=== PATIENT | male | born 1950 | race Caucasian/White ===

== ENCOUNTER 2017-09-30 10:58 | Emergency (ER) | payer MEDICARE, BC ==
[~2017-09-30] VITALS: Ht 175.3 cm; Wt 95.0 kg
[~2017-09-30 10:58] MED LIST: ASPI81TA23 PO; CYCL10TA PO; METO25TA3 PO; NITR0.4S SL; OMEP10CA PO; PRIN10TA PO; ROSU10 PO
[2017-09-30 11:07] VITALS: BP 196/104; PULSE 72; RESP 16; TEMP 98.5; O2SAT 98
[2017-09-30] MEDS ORDERED: ONDANSETRON HCL 4 MG/2 ML VIAL IVP ONE (11:30)
[2017-09-30] MEDS ORDERED: HYDROmorphone HCL PF 1 MG/ML VIAL IVS ONE (11:30)
--- NOTE | 2017-09-30 11:33 | PD ---
HPI Chief Complaint: Pain: Acute or Chronic Time Seen by Provider: 11:15 Travel History International Travel<30 days: No Contact w/Intl Traveler<30days: No Traveled to known affect area: No History of Present Illness HPI This patient complains of severe pain in the left chest and left shoulder and left scapula. It's hard for him to localize. It sometimes radiates down his left arm. Pain is severe. Duration 2 weeks. No distinct injury. It's worse with certain movements of the left arm. He denies motor weakness or sensory loss or paresthesia. He was admitted for this a week ago and had heart catheterization which did not reveal a cardiac cause. No alleviating factors. Symptoms are nonexertional. Symptoms are worsened when he abducts his left arm to its fullest extension. PFSH Past Medical History Heart Rhythm Problems: Yes (wpw- ablation 2012) Cancer: No Cardiac Catheterization: Yes Cardiovascular Problems: Yes (HTN; hypercholesterolemia, ANTON, beckwith parkinsons white) High Cholesterol: Yes Chest Pain: Yes Diabetes: No Patient Takes Glucophage: No Diminished Hearing: No Endocrine: No Gastrointestinal Disorders: No GERD: Yes Genitourinary: No Hypertension: Yes Implanted Vascular Access Dvce: No Musculoskeletal: Yes Neurologic: No Psychiatric: No Reproductive: No Respiratory: Yes Sleep Apnea: Yes (cpap at night ) Tetanus Vaccination: Unknown Past Surgical History Abdominal Surgery: No AICD: No Arteriovenous Shunt: No Cardiac Surgery: Yes (cardiac ablation) Ear Surgery: No Endocrine Surgery: No Eye Surgery: No Genitourinary Surgery: No Gynecologic Surgery: No Insulin Pump: No Joint Replacement: No Neurologic Surgery: No Oral Surgery: No Pacemaker: No Thoracic Surgery: Yes (protruding disc 2008) Other Surgery: Yes (SINUS SURGERY) Social History Alcohol Use: Yes (4 BEERS A WEEK) Tobacco Use: No (Quit 3 years ago) Substance Use: No Allergies-Medications (Allergen,Severity, Reaction): Coded Allergies: No Known Allergies (Verified Allergy, Unknown, 09/30/17) Reported Meds & Prescriptions Reported Meds & Active Scripts Active Medrol Dosepak (Methylprednisolone) 4 Mg Dspk 4 Mg PO DIRECTED Per Pharmacist direction Percocet (Oxycodone-Acetaminophen) 5-325 mg Tab 1 Tab PO Q6H PRN Aspirin EC (Aspirin) 81 Mg Tabdr 81 Mg PO DAILY Nitrostat SL (Nitroglycerin) 0.4 Mg Subl 0.4 Mg SL Q5M PRN Flexeril (Cyclobenzaprine HCl) 10 Mg Tab 5 Mg PO Q8H PRN Reported Omeprazole 10 Mg Cap 20 Mg PO DAILY Metoprolol Tartrate 25 Mg Tab 25 Mg PO BID Prinivil (Lisinopril) 10 Mg Tab 10 Mg PO DAILY Crestor (Rosuvastatin Calcium) 10 Mg Tab 10 Mg PO DAILY Review of Systems General / Constitutional: No: Fever Eyes: No: Visual changes HENT: No: Headaches Cardiovascular: Positive: Chest Pain or Discomfort Respiratory: No: Shortness of Breath Gastrointestinal: No: Abdominal Pain Genitourinary: No: Dysuria Musculoskeletal: Positive: Myalgias, Arthralgias, Pain Skin: No Rash Neurologic: No: Weakness Psychiatric: No: Depression Endocrine: No: Polydipsia Hematologic/Lymphatic: No: Easy Bruising Physical Exam Narrative GENERAL: Well-nourished, well-developed patient in severe pain . SKIN: Focused skin assessment reveals no rash and nodules. Skin is Warm and dry. HEAD: Atraumatic. Normocephalic. EYES: Pupils equal and round. No scleral icterus. No injection or drainage. ENT: No nasal bleeding or discharge. Mucous membranes pink and moist. NECK: Trachea midline. No JVD. CARDIOVASCULAR: Regular rate and rhythm. No murmur appreciated. RESPIRATORY: No accessory muscle use. Clear to auscultation. Breath sounds equal bilaterally. GASTROINTESTINAL: Abdomen soft, non-tender, nondistended. Hepatic and splenic margins not palpable. MUSCULOSKELETAL: No obvious deformities. No clubbing. No cyanosis. No edema. No midline tenderness of the back. Good range of motion of the shoulder but his pain is reproduced with abducting his left arm to 180 . NEUROLOGICAL: Awake and alert. No obvious cranial nerve deficits. Motor grossly within normal limits. Normal speech. Sensation subjectively intact PSYCHIATRIC: Appropriate mood and affect; insight and judgment normal. Data Data Last Documented VS Vital Signs Date Time Temp Pulse Resp B/P (MAP) Pulse Ox O2 Delivery O2 Flow Rate FiO2 09/30/17 14:50 68 16 181/92 (121) 95 Room Air 09/30/17 11:07 98.5 Orders Orders Electrocardiogram (09/30/17 ) Iv Access Insert/Monitor (09/30/17 11:27) Complete Blood Count With Diff (09/30/17 11:27) Basic Metabolic Panel (Bmp) (09/30/17 11:27) Prothrombin Time / Inr (Pt) (09/30/17 11:27) Act Partial Throm Time (Ptt) (09/30/17 11:27) Ondansetron Inj (Zofran Inj) (09/30/17 11:30) Mri C Spine W/O Contrast (09/30/17 ) Electrocardiogram (09/30/17 ) Mri T Spine W/O Contrast (09/30/17 ) Hydromorphone Pf Inj (Dilaudid Pf Inj) (09/30/17 12:00) Ct Thorax/ Chest Wo Iv Contras (09/30/17 ) Radiology Film Requests (09/30/17 ) Labs Laboratory Tests Test 09/30/17 11:30 White Blood Count 4.3 TH/MM3 Red Blood Count 4.01 MIL/MM3 Hemoglobin 12.1 GM/DL Hematocrit 36.9 % Mean Corpuscular Volume 92.0 FL Mean Corpuscular Hemoglobin 30.3 PG Mean Corpuscular Hemoglobin Concent 32.9 % Red Cell Distribution Width 12.8 % Platelet Count 208 TH/MM3 Mean Platelet Volume 9.5 FL Neutrophils (%) (Auto) 48.9 % Lymphocytes (%) (Auto) 40.4 % Monocytes (%) (Auto) 7.4 % Eosinophils (%) (Auto) 1.9 % Basophils (%) (Auto) 1.4 % Neutrophils # (Auto) 2.1 TH/MM3 Lymphocytes # (Auto) 1.7 TH/MM3 Monocytes # (Auto) 0.3 TH/MM3 Eosinophils # (Auto) 0.1 TH/MM3 Basophils # (Auto) 0.1 TH/MM3 CBC Comment DIFF FINAL Differential Comment Prothrombin Time 11.5 SEC Prothromb Time International Ratio 1.0 RATIO Activated Partial Thromboplast Time 27.2 SEC Blood Urea Nitrogen 18 MG/DL Creatinine 1.20 MG/DL Random Glucose 92 MG/DL Calcium Level 8.6 MG/DL Sodium Level 141 MEQ/L Potassium Level 4.3 MEQ/L Chloride Level 108 MEQ/L Carbon Dioxide Level 23.0 MEQ/L Anion Gap 10 MEQ/L Estimat Glomerular Filtration Rate 61 ML/MIN MDM Medical Decision Making Medical Screen Exam Complete: Yes Emergency Medical Condition: Yes Medical Record Reviewed: Yes Differential Diagnosis Disc herniation of cervical spine, discoloration of the thoracic spine, rotator cuff tear Narrative Course I have reviewed the patient's electronic medical record. Reviewed his admission history and physical heart catheterization from 1 week ago IV placed Gave him injection of Dilaudid and Zofran for symptom relief CBC is normal Metabolic profile is normal Coagulation studies are normal I reviewed his EKG which shows sinus rhythm and no ST elevation or ectopy Cervical spine MRI shows several areas of broad-based disc bulging which abut the cervical cord Thoracic spine MRI is normal CT the chest is normal Case reviewed in detail with neurosurgeon Dr. Daniels reviewed the MRI. He recommends some pain management and Medrol Dosepak and outpatient follow-up. This patient is going back to his physician on Wednesday and he has an appointment. He is going back in [place] on Wednesday Diagnosis Primary Impression: Cervical disc herniation Additional Impression: Interscapular pain Additional Instructions: The patient was advised to follow up with their physician and return if they worsen. The patient was warned about potential sedation for the medications they will receive on prescription. Med/Other Pt SpecificInfo: Prescription(s) given Scripts Methylprednisolone Dosepak (Medrol Dosepak) 4 Mg Dspk 4 MG PO DIRECTED, #1 DSPK 0 Refills Per Pharmacist direction Prov: Russel Rodriguez MD 09/30/17 Oxycodone-Acetaminophen (Percocet) 5-325 mg Tab 1 TAB PO Q6H Y for PAIN, #25 TAB 0 Refills Prov: Russel Rodriguez MD 09/30/17 Disposition: 01 DISCHARGE HOME Condition: Stable Russel Rodriguez MD Sep 30, 2017 11:33
[2017-09-30 11:44] LABS: AUTOMATED NEUTROPHIL # 2.1 TH/MM3 (1.8-7.7); BASOPHIL # 0.1 TH/MM3 (0-0.2); BASOPHIL % 1.4 % (0.0-2.0); EOSINOPHIL # 0.1 TH/MM3 (0-0.4); EOSINOPHIL % 1.9 % (0.0-4.0); HEMATOCRIT 36.9 % (39.0-51.0); HEMO FLAGS DIFF FINAL; LYMPH % 40.4 % (9.0-44.0); LYMPHOCYTE # 1.7 TH/MM3 (1.0-4.8); MEAN CORPUSCULAR HEMOGLOBIN 30.3 PG (27.0-34.0); MEAN CORPUSCULAR HGB CONC 32.9 % (32.0-36.0); MONO % 7.4 % (0.0-8.0); NEUT % 48.9 % (16.0-70.0); PLATELET COUNT 208 TH/MM3 (150-450); RED BLOOD COUNT 4.01 MIL/MM3 (4.50-5.90); RED CELL DISTRIBUTION WIDTH 12.8 % (11.6-17.2); WHITE BLOOD COUNT 4.3 TH/MM3 (4.0-11.0)
[2017-09-30] MEDS ORDERED: HYDROmorphone HCL PF 2 MG/ML VIAL IV ONE (12:00)
[2017-09-30 12:01] LABS: APTT (PATIENT) 27.2 SEC (24.3-30.1); POTASSIUM 4.3 MEQ/L (3.5-5.1); PROTHROMBIN TIME - PATIENT 11.5 SEC (9.8-11.6)
--- NOTE | 2017-09-30 12:20 | RADRPT ---
EXAM DATE/TIME: 09/30/2017 12:06 [facility] COMPARISON: No previous studies available for comparison. INDICATIONS : Left chest and shoulder pain. RADIATION DOSE: 15.45 CTDIvol (mGy) MEDICAL HISTORY : Hypertension. Parkinsons. SURGICAL HISTORY : None. ENCOUNTER: Initial ACUITY: 2 weeks PAIN SCALE: 7/10 LOCATION: Left chest TECHNIQUE: Volumetric scanning of the chest was performed. Using automated exposure control and adjustment of t he mA and/or kV according to patient size, radiation dose was kept as low as reasonably achievable to obtain optimal diagnostic quality images. DICOM format image data is available electronically for r eview and comparison. Follow-up recommendations for detected pulmonary nodules are based at a minimum on nodule size and pa tient risk factors according to Fleischner Society Guidelines. FINDINGS: LUNGS: There is no consolidation or pneumothorax. No concerning pulmonary nodule is visualized. PLEURAE: There is no pleural thickening or pleural effusion. MEDIASTINUM: The heart and great vessels demonstrate no acute abnormality. There is no mediastinal or hilar lymph adenopathy. AXILLAE: Within normal limits. No lymphadenopathy. MUSCULOSKELETAL: Within normal limits for patient age. MISCELLANEOUS: The visualized upper abdominal organs demonstrate no acute abnormality. CONCLUSION: Normal examination for a patient of this age. Santana Castillo MD on September 30, 2017 at 12:17 Board Certified Radiologist. This report was verified electronically.
[2017-09-30 12:29] VITALS: BP 149/79; PULSE 59; RESP 16; O2SAT 97
--- NOTE | 2017-09-30 14:04 | RADRPT ---
EXAM DATE/TIME: 09/30/2017 13:26 [facility] COMPARISON: No previous studies available for comparison. INDICATIONS : HNP. MEDICAL HISTORY : Hypertension. SURGICAL HISTORY : Right elbow, deviated septum, sinus surgery and lumbar surgery. ENCOUNTER: Initial ACUITY: 1 day PAIN SCORE: 4/10 LOCATION: Back. TECHNIQUE: Multiplanar multisequence MRI of the thoracic spine was performed. FINDINGS: VERTEBRA: Normal vertebral body height. Homogeneous marrow signal. ALIGNMENT: Normal. CORD: Normal position and configuration. T1-T2: Normal. T2-T3: The thecal sac has a normal diameter. No evidence of disc bulge or protrusion. T3-T4: The thecal sac has a normal diameter. No evidence of disc bulge or protrusion. T4-T5: The thecal sac has a normal diameter. No evidence of disc bulge or protrusion. T5-T6: The thecal sac has a normal diameter. No evidence of disc bulge or protrusion. T6-T7: The thecal sac has a normal diameter. No evidence of disc bulge or protrusion. T7-T8: The thecal sac has a normal diameter. No evidence of disc bulge or protrusion. T8-T9: There is a mild broad-based disc bulge. No abutment of the cord or central canal stenosis. T9-T10: The thecal sac has a normal diameter. No evidence of disc bulge or protrusion. T10-T11: The thecal sac has a normal diameter. No evidence of disc bulge or protrusion. T11-T12: The thecal sac has a normal diameter. No evidence of disc bulge or protrusion. T12-L1: The thecal sac has a normal diameter. No evidence of disc bulge or protrusion. CONCLUSION: No acute disease. Hector Grove Jr., MD on September 30, 2017 at 13:55 Board Certified Radiologist. This report was verified electronically.
--- NOTE | 2017-09-30 14:11 | RADRPT ---
EXAM DATE/TIME: 09/30/2017 13:26 [facility] COMPARISON: No previous studies available for comparison. INDICATIONS : HNP. MEDICAL HISTORY : Hypertension. SURGICAL HISTORY : Right elbow, deviated septum, sinus surgery and lumbar surgery. ENCOUNTER: Initial ACUITY: 1 day PAIN SCORE: 3/10 LOCATION: Back. TECHNIQUE: Multiplanar, multisequence MRI examination of the cervical spine was performed. FINDINGS: VERTEBRAE: Normal vertebral body height. Homogeneous marrow signal. ALIGNMENT: No evidence of subluxation. CORD: Normal configuration and signal. POST FOSSA: The cerebellar tonsils are normal in position. C2-C3: There is disc desiccation with preservation of height. A mild broad-based disc bulge just touches the ventral portion of the cord without flattening. Central canal remains patent. Neural foramina are pa tent. C3-C4: There is disc desiccation and preservation of disc space height. A mild broad-based bulge just touche s the ventral portion of the cord without flattening. No central canal stenosis. Bony uncovertebral h ypertrophy generates mild bilateral neural foraminal narrowing. C4-C5: There is disc desiccation with mild disc space narrowing. A broad-based bulge mildly flattens the david tral portion of the cord. No signal change within the cord. Anterior to posterior dimension of the ce ntral canal in the midline is 9 mm. Bony uncovertebral hypertrophy generates bilateral neural foramin al narrowing. C5-C6: There is disc desiccation with mild disc space narrowing. A broad-based bulge mildly flattens the david tral portion of the cord. No signal change within the cord. Anterior to posterior dimension of the ce ntral canal in the midline is 8 mm. Bony uncovertebral hypertrophy generates bilateral neural foramin al narrowing. C6-C7: There is disc desiccation and disc space narrowing with a mild broad-based bulge. No abutment of the cord or central canal stenosis. Neural foramina are patent bilaterally. C7-T1: The thecal sac has a normal configuration. There is no evidence of disc herniation or spinal canal s tenosis. The neural foramina are patent bilaterally. CONCLUSION: 1. Multilevel degenerative changes including impressions upon the cord but no signal change within th e cord to suggest edema or myelomalacia. Multilevel neural foraminal narrowing. Each level detailed a osvaldo discussion. Hector Grove Jr., MD on September 30, 2017 at 14:02 Board Certified Radiologist. This report was verified electronically.
[2017-09-30 14:50] VITALS: BP 181/92; PULSE 68; RESP 16; O2SAT 95
[2017-09-30] MEDS ORDERED: MEDR4PAK PO (14:52)
[2017-09-30] MEDS ORDERED: PERC5TAB12 PO (14:52)
[2017-09-30 15:11] VITALS: BP 180/70
--- NOTE | 2017-10-01 15:20 | EKG ---
Date Performed: 09/30/2017 Time Performed: 11:03:56 PTAGE: 67 years EKG: Sinus rhythm MODERATE INTRAVENTRICULAR CONDUCTION DELAY BORDERLINE ECG Since PREVIOUS TRACING , no significant change noted PREVIOUS TRACIN09/22/2017 07.58 DOCTOR: Lon Hansen Interpretating Date/Time 10/01/2017 15:18:42
== END 2017-09-30 15:20 | disposition home or self-care (01) ==
LOC: PHED 10:58
DX: M50.20 Other cervical disc displacement, unspecified cervical region (principal); M25.512 Pain in left shoulder; R94.31 Abnormal electrocardiogram [ECG] [EKG]; G20 Parkinson's disease; I10 Essential (primary) hypertension
CPT/HCPCS: 71250; 72141; 72146; 80048; 85025; 85610; 85730; 93005; 96374; 96375; 99285; J1170; J2405